=== PATIENT | female | born 1945 | race Caucasian/White ===

== ENCOUNTER → 2017-02-17 | Outpatient (CLI) | payer MEDICARE, OTHER ==
[~2017-02-17] VITALS: Ht 157.5 cm; Wt 65.8 kg
[~2017-02-17] MED LIST: AMBIEN10 MG PO; ELIQUIS2.5 MG PO; LEVOTHYROXINE25 MCG PO; LIPITOR TAB 2020 MG PO; NEURONTIN 100100 MG PO; PERCOCET 5-3251 EACH PO; PRILOSEC OTC20 MG PO; PROMETHAZINE HC25 M1 PO; PROTONIX40 MG PO; QVAR8.7 G1 INH; TOPROL XL 50 MG50 MG PO; TRAZODONE HCL150 MG PO; VALSARTAN320 MG PO; VITAMIN B-1000 MCG/M IM; ZANAFLEX4 M1 PO; ZYRTEC10 M3 PO
== END ==
LOC: OPSV 02-13 11:00
DX: M81.0 Age-related osteoporosis without current pathological fracture (principal)
CPT/HCPCS: 96365; J3489; J7050

== ENCOUNTER 2017-05-12 15:06 | Emergency (ER) | payer MEDICARE, OTHER ==
[2017-05-12 16:40] LABS: HEMOGLOBIN 11.2 gm/dl (12.3-15.3); RED BLOOD COUNT 3.5 M/UL (4.00-5.10); WHITE BLOOD COUNT 6.1 K/UL (4.5-11.0)
== END 2017-05-12 22:30 | disposition home or self-care (01) ==
LOC: ER1 15:06
PROVIDERS: Emergency Medicine
DX: J06.9 Acute upper respiratory infection, unspecified (principal); R07.89 Other chest pain; R03.0 Elevated blood-pressure reading, without diagnosis of hypertension; Z87.09 Personal history of other diseases of the respiratory system
CPT/HCPCS: 36415; 71010; 80053; 82550; 82553; 83874; 84484; 85025; 85379; 93005; 96374; 99285; J1200; J2930; J7050; Q9963

== ENCOUNTER → 2020-10-25 | Outpatient (CLI) | payer MEDICARE, OTHER ==
[~2020-10-25] VITALS: Ht 157.5 cm; Wt 72.6 kg
[~2020-10-25] MED LIST changes: +ADALAT CC30 MG PO; +ADDERALL 30 MG30 MG PO; +BENICAR40 MG PO; +CLONIDINE1 EAC1 TD; +CYANOCOBAL1000 MCG/1 INJ; +ESTRACE42.5 GM VG; +LEVOXYL25 MCG PO; +LOPRESSOR100 MG PO; +LYRICA25 MG PO; +NORCO 7.5-3251 EACH PO; +VALIUM10 MG PO; -VITAMIN B-1000 MCG/M IM
== END ==
LOC: OPSV 10-12 11:00 → EDBD 13:00 → OPSV 13:05 → EDBD 13:05
DX: M81.0 Age-related osteoporosis without current pathological fracture (principal)
CPT/HCPCS: 96365; J3489

== ENCOUNTER → 2020-10-26 | Day surgery (SDC) | payer MEDICARE, OTHER | END | disposition home or self-care (01) | LOC: EDBD 08:00 → OR 08:00 | DX: K29.50 Unspecified chronic gastritis without bleeding (principal); K21.00 Gastro-esophageal reflux disease with esophagitis, without bleeding; K44.9 Diaphragmatic hernia without obstruction or gangrene; E78.5 Hyperlipidemia, unspecified; E66.9 Obesity, unspecified; I10 Essential (primary) hypertension; E03.9 Hypothyroidism, unspecified; F41.8 Other specified anxiety disorders; Z88.6 Allergy status to analgesic agent; Z88.8 Allergy status to other drugs, medicaments and biological substances; Z90.49 Acquired absence of other specified parts of digestive tract; Z79.899 Other long term (current) drug therapy | CPT/HCPCS: J2704; J7040 ==

== ENCOUNTER → 2021-11-16 | Outpatient (CLI) | payer MEDICARE, OTHER | LOC: KOH-I 11:59 | DX: M96.1 Postlaminectomy syndrome, not elsewhere classified (principal); M51.36 Other intervertebral disc degeneration, lumbar region; M51.37 Other intervertebral disc degeneration, lumbosacral region | CPT/HCPCS: 72110 ==

== ENCOUNTER → 2021-11-20 | Outpatient (CLI) | payer MEDICARE, OTHER | LOC: KOH-I 15:15 | DX: N18.30 Chronic kidney disease, stage 3 unspecified (principal); Q61.02 Congenital multiple renal cysts; N27.1 Small kidney, bilateral | CPT/HCPCS: 76775 ==

== ENCOUNTER → 2022-05-21 | Outpatient (CLI) | payer MEDICARE, OTHER | LOC: RAD 08:51 | DX: R13.19 Other dysphagia (principal) | CPT/HCPCS: 74221 ==

== ENCOUNTER → 2022-05-29 | Outpatient (CLI) | payer MEDICARE, OTHER ==
[~2022-05-29] VITALS: Ht 157.5 cm; Wt 78.9 kg
== END ==
LOC: OPSV 09:56
DX: M81.0 Age-related osteoporosis without current pathological fracture (principal)
CPT/HCPCS: 96365; J3489